=== PATIENT | male | born 1955 | race Caucasian/White ===

== ENCOUNTER 2022-09-09 09:55 | Outpatient (CLI) | payer MEDICARE, SELFPAY ==
--- NOTE | ~2022-09-09 | MR_ITS ---
EXAMINATION: MR lumbar spine wo con DATE: 09/09/2022 12:23 INDICATION: Low back pain. TECHNIQUE: Magnetic resonance imaging (MRI) of the lumbar spine was performed without intravenous con trast. Sequences included sagittal T2-weighted FSE, sagittal T2-weighted FS FSE, sagittal T1-weighted FSE, and axial T2-weighted FSE. COMPARISON: None FINDINGS: There is 4 degrees levocurvature of lumbar spine. There is mild chronic anterior wedging of T12 vertebral body. There is 3 mm anterolisthesis of L4 on L5. There is mildly decreased disc height at L4-L5. The distal spinal cord signal intensity is normal. The conus medullaris is at L1. The foll owing disc levels are specifically discussed: L1-L2: There is a central protrusion. There is mild bilateral facet joint osteoarthritis. There is no neural foraminal stenosis. There is mild central canal stenosis. L2-L3: The disc is mildly bulging. There is mild bilateral facet joint osteoarthritis. There is mild right neural foraminal stenosis. There is no central canal stenosis. L3-L4: There is a right foraminal protrusion. There is severe bilateral facet joint osteoarthritis. T here is mild right neural foraminal stenosis. There is no central canal stenosis. L4-L5: The disc is bulging and has an annular fissure. There is severe bilateral facet joint osteoart hritis. There is mild bilateral neural foraminal stenosis. There is mild central canal stenosis. Ther e is moderate stenosis of left lateral recess. L5-S1: The disc is bulging as an annular fissure. There is mild bilateral facet joint osteoarthritis. There is mild bilateral neural foraminal stenosis. There is mild central canal stenosis. IMPRESSION: 1. Moderate stenosis of left lateral recess at L4-L5. Otherwise mild lumbar spondylosis. Reviewed, dictated and finalized at location A. CH OPERATORS SUPERVISOR IMPRESSION: 1. Moderate stenosis of left lateral recess at L4-L5. Otherwise mild lumbar spo ndylosis.
== END 2022-09-09 09:56 | disposition home or self-care (01) ==
PROVIDERS: PCP Family Medicine; Visit Provider Nurse Practitioner Adult Health
DX: M54.9 Dorsalgia, unspecified (principal); M47.816 Spondylosis without myelopathy or radiculopathy, lumbar region; M48.061 Spinal stenosis, lumbar region without neurogenic claudication
CPT/HCPCS: 72148

== ENCOUNTER 2022-09-11 12:27 | Outpatient (CLI) | payer MEDICARE, SELFPAY ==
--- NOTE | ~2022-09-11 | XR_ITS ---
Lumbosacral Spine: AP and lateral views, with neutral, flexion, and extension positioning Clinical History: Pain Findings: Probable minimal anterior wedging deformity of T12. No fracture seen in the lumbar spine it self. Grade 1 anterolisthesis of L4 over L5 present, without instability evident on flexion or extens ion views. The intervertebral disc spaces are preserved. The sacroiliac joints are normally outlined . Impression: Grade 1 anterolisthesis of L4 over L5. No instability evident on flexion or extension views. Minimal anterior wedging deformity of T12. Reviewed, dictated and finalized at location . IGN BROADCAST SPECIALIST Impression: Grade 1 anterolisthesis of L4 over L5. No instability evident on flexion or ext ension views. Minimal anterior wedging deformity of T12.
== END 2022-09-11 12:28 | disposition home or self-care (01) ==
PROVIDERS: PCP Family Medicine; Visit Provider Nurse Practitioner Adult Health
DX: M54.9 Dorsalgia, unspecified (principal)
CPT/HCPCS: 72110

== ENCOUNTER 2023-02-10 09:33 | Outpatient (CLI) | payer MEDICARE, SELFPAY ==
--- NOTE | ~2023-02-10 | XR_ITS ---
Lumbosacral Spine: AP and lateral views, with neutral, flexion, extension positioning. Clinical History: Pain Findings: The normal lordotic curve is maintained. 4 mm anterolisthesis of L4 over L5 present. No ins tability evident on flexion or extension. There is moderate facet arthropathy from L4 through S1.. T he intervertebral disc spaces are preserved. The sacroiliac joints are normally outlined. Impression: 4 mm anterolisthesis of L4 over L5. Facet arthropathy at the lower lumbar spine, as detailed above. Reviewed, dictated and finalized at location M. Impression: 4 mm anterolisthesis of L4 over L5. Facet arthropathy at the lower lumbar spine, as detailed above.
== END 2023-02-10 09:34 | disposition home or self-care (01) ==
LOC: ANHIMG 09:35
PROVIDERS: PCP Family Medicine; Visit Provider Neurological Surgery
DX: M47.816 Spondylosis without myelopathy or radiculopathy, lumbar region (principal)
CPT/HCPCS: 72110

== ENCOUNTER 2023-08-27 10:54 | Outpatient (CLI) | payer MEDICARE, SELFPAY ==
--- NOTE | ~2023-08-27 | MR_ITS ---
EXAMINATION: MR lumbar spine wo con DATE: 08/27/2023 11:51 INDICATION: Spinal stenosis. Low back pain. Lumbar radiculopathy. TECHNIQUE: Magnetic resonance imaging (MRI) of the lumbar spine was performed without intravenous con trast. Sequences included sagittal T2-weighted FSE, sagittal T2-weighted FS FSE, sagittal T1-weighted FSE, and axial T2-weighted FSE. COMPARISON: Lumbar spine MRI 09/09/2022 FINDINGS: There is 5 degrees levocurvature of lumbar spine. There is 3 mm anterolisthesis of L4 on L5 . There is mild chronic anterior wedging of T12 vertebral body. There is mildly decreased disc height at L4-L5. The distal spinal cord signal intensity is normal. The conus medullaris is at L1. 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 The following disc levels are specifically discussed: L1-L2: The disc is bulging. There is mild bilateral facet joint osteoarthritis. There is mild bilater al neural foraminal stenosis. There is mild central canal stenosis. L2-L3: The disc is bulging. There is mild bilateral facet joint osteoarthritis. There is mild bilater al neural foraminal stenosis. There is no central canal stenosis. L3-L4: The disc is bulging. There is severe right and moderate left facet joint osteoarthritis. There is mild bilateral neural foraminal stenosis. There is mild central canal stenosis. L4-L5: The disc is bulging and has an annular fissure. There is severe bilateral facet joint osteoart hritis. There is mild bilateral neural foraminal stenosis. There is mild central canal stenosis. Ther e is moderate stenosis of left lateral recess. L5-S1: The disc is bulging and has an annular fissure. There is mild right and moderate left facet christiano int osteoarthritis. There is mild bilateral neural foraminal stenosis. There is mild central canal st enosis. IMPRESSION: 1. Stable moderate spondylosis at L4-L5 and mild spondylosis at other levels. Reviewed, dictated and finalized at location E. CENTER PROJECT MANAGER
== END 2023-08-27 10:55 | disposition home or self-care (01) ==
PROVIDERS: PCP Family Medicine; Visit Provider Neurological Surgery
DX: M48.061 Spinal stenosis, lumbar region without neurogenic claudication (principal); M43.06 Spondylolysis, lumbar region; M47.817 Spondylosis without myelopathy or radiculopathy, lumbosacral region
CPT/HCPCS: 72148

== ENCOUNTER 2023-09-08 10:30 | Outpatient (CLI) | payer MEDICARE, SELFPAY ==
[2023-09-08 11:05] LABS: Basophils Absolute Auto 0.1 K/mm3 (0.0-0.1); Basophils Percent Auto 1.9 % (0.2-1.2); Eosinophils Absolute Auto 0.2 K/mm3 (0-0.3); Eosinophils Percent Auto 3.4 % (0-4.4); Hematocrit 49.6 % (42.0-52.0); Hemoglobin 16.2 g/dL (14.0-18.0); Immature Granulocyte Absolute 0.02 K/mm3 (0.00-0.031); Immature Granulocyte Percent A 0.3 % (0-0.5); Lymphocytes Absolute Auto 1.66 K/mm3 (0.9-3.2); Mean Corpuscular HGB Conc 32.7 g/dl (32-36); Mean Corpuscular Hemoglobin 29.2 pg (26-34); Mean Corpuscular Volume 89.5 fl (80-100); Mean Platelet Volume 9.3 fl (7.4-10.4); Monocytes Absolute Auto 0.5 K/mm3 (0.1-0.6); Monocytes Percent Auto 8.5 % (2.6-8.5); Neutrophils Absolute Auto 3.8 K/mm3 (1.3-6.7); Neutrophils Percent Auto 59.9 % (45.5-73.1); Platelet Count Result 237 k/mm3 (150-375); Red Blood Count 5.54 M/mm3 (4.6-6.20); Red Cell Distribution Width 13.2 % (11.5-14.5); White Blood Count 6.4 K/mm3 (4.5-10.0)
[2023-09-08 11:17] LABS: Partial Thromboplastin Time 27.2 SECONDS (22.3-36.8); Prothrombin Time 13.5 Seconds (11.1-14.7)
[2023-09-08 11:18] LABS: Appearance Urine Clear (Clear); Bacteria Urine None Seen /hpf; Bilirubin Urine Negative (Negative); Blood Urine 2+ (Negative); Color Urine Yellow (Yellow); Glucose Urine UA Negative (Negative); Ketones Urine Trace mg/dL (Negative); Leukocyte Esterase Ur Negative LEU/UL (Negative); Nitrate Urine Negative (Negative); Non Pathogenic Casts 0-2; Protein Urine Negative (Negative); Specific Grav Ur 1.029 (1.001-1.035); Squamous Epithelial Cell Urine None seen /hpf (Few); WBC Urine 0-5 /hpf; pH Urine 5.5 (5.0-9.0)
[2023-09-08 11:20] LABS: Anion Gap 10 mmol/L (8-16); Blood Urea Nitrogen 18 mg/dL (9-20); Calcium 9.3 mg/dL (8.4-10.2); Carbon Dioxide 30 mmol/L (22-30); Chloride 98 mmol/L (98-107); Estimated Glomerular Filt Rate > 60; Glucose 115 mg/dL (65-110); Potassium 3.9 mmol/L (3.4-5.0); Sodium 138 mmol/L (137-145)
[2023-09-08 11:31] LABS: Add Urine Microscopic? YES
== END 2023-09-08 10:31 | disposition home or self-care (01) ==
LOC: ANHSURGERY 10:35
PROVIDERS: PCP Family Medicine; Visit Provider Neurological Surgery
DX: Z01.818 Encounter for other preprocedural examination (principal); M48.061 Spinal stenosis, lumbar region without neurogenic claudication
CPT/HCPCS: 36415; 80048; 81001; 85025; 85610; 85730

== ENCOUNTER 2023-09-16 17:48 | Observation (INO) | payer MEDICARE, SELFPAY ==
--- NOTE | 2023-09-03 14:58 | PC.NURSE ---
Report to the Outpatient Waiting Room, entrance under the green pavilion located off [facility], at time _0600 on date __09/15/23 . Planned Procedure Time: _0730 . Time changes happen often and if your time is changed the preop area will call you the afternoon before. - You and your visitor will be asked to self-screen and do not enter if you have any COVID symptoms. - A mask is optional within the hospital at this time. Patients may have clear liquids (water, carbonated beverages, clear teas, apple juice) until 3 hours prior to surgery (4:30AM)with a maximum of 20 ounces. - No food from midnight until time of surgery - Infants may have breast milk until 4 hours before surgery, formula 6 hours prior to surgery. - Children will be allowed to drink immediately following surgery. If applicable, please bring a bottle or sippy cup to assist with drinking. Juice, water, soda, and popsicles are readily available. For infants on formula, please bring formula the day of surgery. Pacifiers are allowed. Take the following medications with a SIP of water the morning of surgery: __DILTIAZEM,FLECAINIDE DO NOT STOP ANY OF YOUR OTHER PRESCRIPTION MEDICATIONS PRIOR TO SURGERY ?EXCEPT THE FOLLOWING Medications to discontinue per physician NONE Please no make-up, nail korean, hairspray, perfume, deodorant, or body powder the day of surgery. No jewelry (including any body piercings) or valuables the day of surgery, leave them at home. Please take a shower or bath the night before, or the morning of, surgery with an antibacterial soap. Wear comfortable, loose fitting clothing. Children are encouraged to wear pajamas. - Jewelry must be removed prior to entering the operating room. Rings and piercings that are not removed may be cut off. - The hospital will not accept responsibility for valuables. - Please leave all valuables, including medications, at home the day of surgery. If you are going home after surgery, a licensed waste collection driver must drive you home. - NO public transportation without another adult if you receive anesthesia. - We recommend that an adult stay with you for 24 hours following discharge. - We also recommend that you do not drive, make important decision, drink alcoholic beverages, or take any drugs that were not prescribed by your health care provider for at least 24 hours after your discharge time. Follow any additional instructions given to you from your surgeon. If you or anyone in your household have experienced Covid symptoms in the past week, please notify your surgeon or the nurse liaison at the phone number below for possible testing. TELEPHONE instructions given to _PATIENT and asked if any additional questions and then verbalized understanding. Patient advised to call surgeon office or pre surgery nurse liaison [phone] if any additional questions.
[2023-09-03 15:04] VITALS: BMI 35.2
[2023-09-15] VITALS (16 sets, daily range): BP systolic 100–157; BP diastolic 49–85; PULSE 60–82; RESP 8–23; TEMP 36.1–36.8; O2SAT 91–100
[2023-09-15] MEDS: LACTATED RINGERS 1,000 ML 30 ML IV CONT ×3 (06:47→10:30)
--- NOTE | 2023-09-15 07:00 | WPDANESEPPF ---
Anes - Initial Pre Proc Eval Procedure: Operation Date: 09/15/23 07:30 Proposed Procedures p L4- L5 Lumbar Laminectomy - Candelaria Tillman MD Date/Time: 09/15/23 07:00 Surgeon: Candelaria Tillman MD Pre Op Diagnosis: lumbar stenosis with radiculopathy Patient Data Age: 67 Gender: M Height: 1.8 m Weight: 115 kg Last Vital Signs Temp 36.8 C 09/15/23 06:48 Pulse 82 09/15/23 06:48 Resp 16 09/15/23 06:48 BP 157/78 H 09/15/23 06:48 Pulse Ox 96 09/15/23 06:48 O2 Del Method Room Air 09/15/23 06:48 Allergies Allergy/AdvReac Type Severity Reaction Status Date / Time pollen extracts Allergy Mild Congested Verified 09/15/23 06:22 Home Medications Medication Instructions Recorded Confirmed Type diltiazem HCl 180 mg capsule,24 180 mg PO DAILY 06/09/22 09/15/23 History hr,extended release flecainide 50 mg tablet 50 mg PO Q12H 06/09/22 09/15/23 History omeprazole 40 mg capsule,delayed 20 mg PO DAILY 06/09/22 09/15/23 History release tadalafil 20 mg tablet (Cialis) 20 mg PO PRN PRN Erectile 06/09/22 09/03/23 History Dysfunction albuterol sulfate 90 mcg/actuation 1 puff inhalation Q4H PRN 02/05/23 09/03/23 Rx aerosol inhaler shortness of breath or wheezing #8.5 grams acetaminophen 500 mg capsule 1,000 mg PO PRN PRN Pain 09/03/23 09/15/23 History montelukast 10 mg tablet 10 mg PO DAILY #90 tabs 09/06/23 Rx Patient hx anesthesia problems: none Family hx anesthesia problems: none Results Review: All pre-operative results and documents have been reviewed as part of the pre-operative evaluation. [facility] Past Medical History Medical History Aftercare following bilateral shoulder joint replacement surgery Allergies Anxiety Asthma Cervical disc disease Encounter for screening for malignant neoplasm of prostate GERD (gastroesophageal reflux disease) Hernia History of stress test Left knee injury Left knee pain Left knee pain Lumbar pain Lumbar spondylosis PEDRO (obstructive sleep apnea) Paroxysmal A-fib Sciatica Sleep apnea Surgical History Surgical History History of colonoscopy 2006 History of tooth extraction History of total hip replacement Family History Family History Father Malignant neoplasm of prostate Mother Alzheimer disease Social History Social History Social History: Rakan is very confident filling out medical forms. Smoking status: Never smoker Alcohol intake: current Alcohol use details: rare Substance use: never Substance use type: does not use Do You Feel Safe in your Home?: Yes Lack of Transportation: No Lack of Food: Never True Current Housing: I Have Housing Concerned About Future Housing: No Difficulty Paying Gas/Electric Bills: No Difficulty Paying for Meds: No Currently Unemployed: No Education: Master's Degree or Higher Difficulty w/ Childcare or Family Care: No Living arrangements: with family Occupation/Education: occupation Gender identity (if verbalized by the patient): Male Sexual Orientation (if Verbalized by the Patient): Straight or Heterosexual Spiritual care concerns: No Anes - Eval Final PreProcedure Day of Procedure 09/15/23 07:00 Patient weight: obese Heart: regular rate and rhythm Lungs: clear to auscultation Airway: Mallampati scale class III, special considerations and other (partials) Neurological: alert and oriented Last oral intake: >/= 8 hours ASA classification: III Emergent: no Anesthetic plan: proceed Anesthesia type and monitoring: general ETT and standard monitoring Results Review: All pre-operative results and documents have been reviewed as part of the pre-operative evaluation. Informed Consent: The patient's anesthetic plan
--- NOTE | 2023-09-15 07:17 | WPDHPUPDATE1 ---
History and Physical Update Update Date/Time: 09/15/23 07:17 History and Physical has been reviewed, including an updated exam of the patient. There are NO changes in the patient's condition. Risks, benefits, and alternatives have been discussed and questions answered. Patient agrees to proceed with procedure.
--- NOTE | 2023-09-15 07:18 | PM.IMHP ---
H&P: HPI History of Present Illness Date/Time: 09/15/23 07:18 Chief Complaint: back and right leg pain Narrative: Mr. Weston is a? 67-year-old male with history of AFib in asthma who presents for follow-up of back and right leg pain.? He had previously been following with Dr. Smith for these symptoms.? He describes pain in the lower back that radiates down the back of the right leg into foot which occurs with any kind of activity.? He generally is pain-free at rest.? He denies any weakness or paresthesias in the leg.? He generally does not have any symptoms on the left side.? He has had physical therapy, chiropractic treatment, and 2 epidural steroid injections at which were helpful only on a temporary basis.? His symptoms have become quite limiting for him, and he is ready to pursue surgery. ? He notably has a history of AFib for which he follows with Dr. Bob Goyal of cardiology at [facility].? He does not take any blood thinners for this.? He otherwise denies any significant medical issues. Review of Systems Review of Systems: All systems reviewed & are unremarkable except as noted in HPI and below PMFSH Past Medical History Medical History Aftercare following bilateral shoulder joint replacement surgery Allergies Anxiety Asthma Cervical disc disease Encounter for screening for malignant neoplasm of prostate GERD (gastroesophageal reflux disease) Hernia History of stress test Left knee injury Left knee pain Left knee pain Lumbar pain Lumbar spondylosis PEDRO (obstructive sleep apnea) Paroxysmal A-fib Sciatica Sleep apnea Surgical History Surgical History History of colonoscopy 2006 History of tooth extraction History of total hip replacement Family History Family History Father Malignant neoplasm of prostate Mother Alzheimer disease Social History Social History Social History: Rakan is very confident filling out medical forms. Smoking status: Never smoker Alcohol intake: current Alcohol use details: rare Substance use: never Substance use type: does not use Do You Feel Safe in your Home?: Yes Lack of Transportation: No Lack of Food: Never True Current Housing: I Have Housing Concerned About Future Housing: No Difficulty Paying Gas/Electric Bills: No Difficulty Paying for Meds: No Currently Unemployed: No Education: Master's Degree or Higher Difficulty w/ Childcare or Family Care: No Living arrangements: with family Occupation/Education: occupation Gender identity (if verbalized by the patient): Male Sexual Orientation (if Verbalized by the Patient): Straight or Heterosexual Spiritual care concerns: No Meds Home Medications and Allergies Home Medications Medication Instructions Recorded Confirmed Type diltiazem HCl 180 mg capsule,24 180 mg PO DAILY 06/09/22 09/15/23 History hr,extended release flecainide 50 mg tablet 50 mg PO Q12H 06/09/22 09/15/23 History omeprazole 40 mg capsule,delayed 20 mg PO DAILY 06/09/22 09/15/23 History release tadalafil 20 mg tablet (Cialis) 20 mg PO PRN PRN Erectile 06/09/22 09/03/23 History Dysfunction albuterol sulfate 90 mcg/actuation 1 puff inhalation Q4H PRN 02/05/23 09/03/23 Rx aerosol inhaler shortness of breath or wheezing #8.5 grams acetaminophen 500 mg capsule 1,000 mg PO PRN PRN Pain 09/03/23 09/15/23 History montelukast 10 mg tablet 10 mg PO DAILY #90 tabs 09/06/23 Rx Allergies Allergy/AdvReac Type Severity Reaction Status Date / Time pollen extracts Allergy Mild Congested Verified 09/15/23 06:22 Vital Signs Vital Signs - 24 hr 09/15/23 06:48 Temperature 98.2 F Pulse Rate 82 Respiratory Rate 16 Blood Pressure 157/78 H Pulse Oximetry 96 Oxyge
[2023-09-15] MEDS: ceFAZolin 2 GM/D5W 50 ML 2 GM/50 ML BAG IVPB ×3 (07:30→21:52)
[2023-09-15] MEDS: BUPIVACAINE/EPINEPHRINE 0.5% 50 ML VIAL 30 ML INFILTRATE (08:06)
--- NOTE | 2023-09-15 09:46 | PM.OP ---
Procedure Note - Brief Procedure Note - Brief Date of procedure: 09/15/23 lumbar stenosis with radiculopathy Post-op diagnosis: Same Procedure performed: L4-5 laminectomy, medial facetectomy, foraminotomy Repair of iatrogenic CSF leak Use of microscope Use of C-arm Surgeon: Candelaria Tillman MD Pharmacy Data Analyst: Sulaiman Anesthesia: GETA Description of procedure: Laminectomy at L4-5. Durotomy created at inferior aspect of exposure toward right of midline. This was repaired with neurolon, duragen, and duraseal Estimated blood loss (mL): 50 Drains: No Packing: No Pathology: None sent Complications: Other complications (CSF leak repaired primarily) Condition: Stable Disposition: PACU
--- NOTE | 2023-09-15 10:02 | W.PM.PROC2 ---
Procedure Note - Detailed Date of Procedure 09/15/23 Pre-op Diagnosis lumbar stenosis with radiculopathy Post-op Diagnosis Same Procedure Performed 1. L4-5 laminectomy, medial facetectomy, foraminotomy 2. Use of microscope 3. Use of C-arm 4. Repair of iatrogenic durotomy Surgeon Candelaria Tillman MD Nuclear Station Operator Sulaiman Anesthesia General Indications Mr. Weston is a 67-year-old male with history of AFib in asthma who presents with over 1 year back and radicular right leg pain following an S1 dermatome which has been unresponsive to physical therapy, chiropractic treatment, and epidural steroid injections.? His symptoms have become quite debilitating for him, and he is ready to pursue surgery.? He is neurologically intact on physical exam.? MRI lumbar spine does show moderate to severe stenosis at L4-5, particularly in the lateral recesses.?Surgery in the form of L4-5 laminectomy was recommended. Risks including bleeding, pain, infection, weakness, paresthesias, CSF leak, failure to relieve symptoms, and anesthetic complications were discussed. The patient provided written informed consent to proceed. Description of Procedure The patient was brought to the operating room, and general anesthesia was induced. The patient was placed prone on the Reinaldo frame, and all pressure points were padded. Compression devices were placed on the patient's calves. The C-arm was brought onto the field to localize the appropriate disc space and assist with incisional planning. The area was prepped and draped in usual sterile fashion. A time out was conducted, and pre-operative antibiotics were administered. Local anesthesia was injected into the planned incision. A midline skin incision was made with a 10-blade scalpel, and dissection was carried down with the monopolar cautery to open the fascia. Once the spinous processes were located, a subperiosteal dissection was performed to expose the laminae bilaterally at L4. A self-retaining retractor was placed. The C-arm was brought in to confirm the correct level. The microscope was draped and brought into the field. The spinous process of L4 was removed with the Leksell. The high-speed drill was used to remove the laminae down to the ligamentum flavum at these levels. The remaining lamina was removed with kerrison rongeurs. The ligamentum flavum was opened and removed with the Kerrison. A medial facetectomy and foraminotomy on the right side was performed as well with the kerrison. At the inferior aspect of the exposure on the right side, the dura was adherent to the overlying tissues, and a CSF leak was created while using the kerrison. Further exposure inferiorly was performed to expose the length of the durotomy. We were eventually able to visualize the entire durotomy and to close this primarily with a 5-0 neurolon. A Valsalva was performed which showed no further CSF leakage. Hemostasis was ensured in the epidural space, and the suture line was covered with Duragen followed by Duraseal. Hemostasis was ensured, and the area was copiously irrigated. The muscle was loosely approximated with 0-Vicryl. The fascia was closed with 0-Vicryl in an interrupted fashion. The soft tissue was again copiously irrigated. The dermis was closed with 2-0 and 3-0 interrupted Vicryl. The skin was closed with 4-0 monocryl in subcuticular fashion. Skin glue was applied.? The patient was returned supine on the stretcher, extubated, and transferred to PACU without incident. The patient and his were informed of the durotomy and plan to keep him overnight on flat bedrest. Codes: 40983, 60576 Implants 1x1 duragen Estimated Blood Loss 50 Drains No Packing No Pathology None sent Complications Other complications (CSF leak repaired primarily) Condition Stable Disposition PACU [facility] Billing Surgery - Charge Forward: Surgery Billing
--- NOTE | 2023-09-15 10:59 | SUR.PHASEI ---
Patient meets PACU discharge criteria, unit bed unavailable at this time. Patient placed in extended recovery status.
--- NOTE | 2023-09-15 12:40 | ADMGEN ---
This patient, Rakan Weston, was admitted to 3 [facility] Surg Room 307-01. Patient/family oriented to hospital policies and general routines including ID bracelet, bed and alarms, visiting hours, pain management, procedures, bathroom and other care routines, personal items, smoking policy, room service/diet, and visiting hours. Information on how to activate the Rapid Response Team has been discussed. Patient/Family are encouraged to report perceived risks to care and to ask questions if they do not understand what they are told or what they should do.
[2023-09-15] MEDS: oxyCODONE HCL (*CRX) 5 MG TAB IR PO (12:48)
[2023-09-15] MEDS: ONDANSETRON INJ 4 MG/2 ML VIAL IV PUSH ×2 (12:48→23:29)
[2023-09-15] MEDS: KCL 20 MEQ/D5/0.45% SOD CHL 1,000 ML 100 ML IV CONT (17:15)
[2023-09-15] MEDS: CYCLOBENZAPRINE HCL 10 MG TABLET PO (18:28)
[2023-09-15] MEDS: ACETAMINOPHEN 500 MG TABLET 1000 MG PO (21:51)
[2023-09-15] MEDS: DOCUSATE SODIUM 100 MG CAPSULE PO (21:51)
[2023-09-15] MEDS: FLECAINIDE ACETATE 50 MG TABLET PO (21:51)
[2023-09-16] VITALS (12 sets, daily range): BP systolic 80–120; BP diastolic 30–64; PULSE 69–98; RESP 16–18; TEMP 36.3–37; O2SAT 92–95
--- NOTE | ~2023-09-16 | XR_ITS ---
EXAMINATION: XR fluoroscopy no charge DATE: 09/15/2023 10:01 INDICATION: Lumbar laminectomy TECHNIQUE: 2 fluoroscopic images of the lower lumbar spine were obtained during procedure performed rivas Tillman. Radiologist was not present for the imaging or procedure. The amount of fluoroscopy ti me used during this procedure was 0.1 minutes. COMPARISON: 02/10/2023 FINDINGS/IMPRESSION: Images demonstrate a lap sponge, surgical retractors and the tip of a metallic probe projecting over the L4-L5 spinous processes. See procedure note for further detail. Reviewed, dictated and finalized at location A. OR'S AIDE
[2023-09-16] MEDS: PROMETHAZINE HCL 25 MG/ML AMPUL 12.5 MG IV PUSH (02:25)
[2023-09-16] MEDS: SODIUM CHLORIDE 0.9% IV 1,000 ML 999 ML IV CONT (02:25)
--- NOTE | 2023-09-16 03:23 | PC.NURSE ---
Patient c/o dizziness/lightheadedness, nausea and dry heaving. BP checked, 80/30. Spoke with Dr. Tillman at 0225. New orders received for NS 1L bolus and phenergan 12.5 IVP Q4H PRN.
[2023-09-16] MEDS: ACETAMINOPHEN 500 MG TABLET 1000 MG PO ×3 (05:00→20:17)
[2023-09-16] MEDS: ceFAZolin 2 GM/D5W 50 ML 2 GM/50 ML BAG IVPB (05:01)
[2023-09-16] MEDS: ONDANSETRON INJ 4 MG/2 ML VIAL IV PUSH (05:26)
[2023-09-16] MEDS: FLECAINIDE ACETATE 50 MG TABLET PO (08:39)
[2023-09-16] MEDS: PANTOPRAZOLE 40 MG TABLET PO (08:40)
[2023-09-16] MEDS: DOCUSATE SODIUM 100 MG CAPSULE PO ×2 (08:40→20:17)
[2023-09-16] MEDS: dilTIAZem HCL CD 180 MG CAP.24HR PO (08:40)
[2023-09-16] MEDS: CYCLOBENZAPRINE HCL 10 MG TABLET PO (08:40)
--- NOTE | 2023-09-16 14:02 | WPDANESPN ---
Anes - Prog Note Post-Op Date/Time: 09/16/23 14:02 Cardiovascular status: normal Respiratory status: normal Airway patency: baseline Mental status: baseline Post-Op hydration status: normal Vital Signs: Last Vital Signs Temp 98.5 F 09/16/23 08:00 Pulse 81 09/16/23 08:39 Resp 16 09/16/23 08:00 BP 107/62 09/16/23 08:00 Pulse Ox 94 09/16/23 09:12 O2 Del Method Nasal Cannula 09/16/23 09:12 O2 Flow Rate 2 09/16/23 09:12 Pain Score (VAS): 5 I/O: Intake & Output 09/15/23 09/16/23 09/16/23 23:59 07:59 15:59 Intake Total 322 236 Output Total 786 055 Balance -[id number] Post-procedural complaints: nausea and vomiting Patient Feedback: Patient satisfied with anesthetic care.
--- NOTE | 2023-09-16 15:41 | PC.NURSE ---
Per phone call with Dr. Tillman, pt's vitals are only to be done at the beginning of each shift. Additionally, pt is not to be disturbed outside of the first four hours of the shift, particularly overnight.
--- NOTE | 2023-09-16 16:51 | WPDNEUROSGPN ---
Progress Note: A&P Assessment and Plan (1) Status post lumbar laminectomy: Code(s): Z98.890 - Other specified postprocedural states Status: Acute Plan -Continue to monitor blood pressure -Monitor for positional headaches, incisional drainage -PT/OT evaluations today -Anticipate discharge home tomorrow morning -I reviewed wound care instructions and restrictions Subjective Date/time seen: 09/16/23 14:30 Interval history: Issues overnight with hypotension, nausea/vomiting, and dizziness. He received a bolus of NS overnight which resolved the hypotension. Nausea is much improved today. He ambulated in the [facility] with therapy. He feels very fatigued and somewhat light-headed. Pain is being controlled with tylenol. He denies positional headaches. He denies any leg pain or paresthesias. Neither he nor his feel that he is ready for discharge this afternoon. Review of Systems Review of Systems: All systems reviewed & are unremarkable except as noted in HPI and below Exam Narrative: Incision c/d/i with dermabond in place Full strength in lower extremities Sensation intact to light touch AOx4 Ambulating with walker Objective Data Vital Signs Vital Signs: Vital Signs - 24 hr 09/15/23 21:22 09/15/23 22:21 09/16/23 01:21 Temperature 97.3 F L 97.4 F L Pulse Rate 76 89 Respiratory Rate 16 18 Blood Pressure 102/56 L 107/55 L Pulse Oximetry 95 91 92 Oxygen Delivery Room Air Oxygen Flow Rate 09/15/23 20:00 09/16/23 02:20 09/16/23 03:10 Temperature Pulse Rate 97 95 Respiratory Rate Blood Pressure 80/30 L 120/58 L Pulse Oximetry 92 95 Oxygen Delivery Room Air Oxygen Flow Rate 09/16/23 07:04 09/16/23 08:39 09/16/23 08:00 Temperature 98.6 F 98.5 F Pulse Rate 98 81 85 Respiratory Rate 18 16 Blood Pressure 106/47 L 107/62 Pulse Oximetry 95 94 Oxygen Delivery Oxygen Flow Rate 09/16/23 09:12 09/16/23 08:40 09/16/23 13:53 Temperature Pulse Rate Respiratory Rate Blood Pressure Pulse Oximetry 94 92 Oxygen Delivery Nasal Cannula Nasal Cannula Room Air Oxygen Flow Rate 2 2 09/16/23 14:00 Temperature 98.0 F Pulse Rate 69 Respiratory Rate 18 Blood Pressure 103/64 Pulse Oximetry 95 Oxygen Delivery Oxygen Flow Rate Intake/Output Intake/Output: Intake & Output 09/13/23 09/14/23 09/15/23 09/16/23 23:59 23:59 23:59 23:59 Intake Total 1272 236 Output Total 710 950 Balance 562 -714 Meds/Results Medications: Active Medications Generic Name Dose Route Start Last Admin Trade Name Freq PRN Reason Stop Dose Admin Acetaminophen 1,000 mg 09/15/23 09:49 09/16/23 13:20 Acetaminophen 500 Mg Tablet PO 1,000 mg Q6H PRN Administration Mild Pain (1-3) Al Hydrox/Mg Hydrox/Simethicone 20 ml 09/15/23 09:48 Mag Hydrox/Al Hydrox/Simeth 30 Ml Udc PO Q4H PRN Indigestion/Heartburn Albuterol 1 puff 09/15/23 09:52 Albuterol Sulfate (*Sp) Aerosol 1 Puff INHALATION Q4H PRN shortness of breath or wheezing Bisacodyl 10 mg 09/15/23 09:48 Bisacodyl 10 Mg Suppository RECTAL DAILY PRN Constipation Cyclobenzaprine HCl 10 mg 09/15/23 12:16 09/16/23 08:40 Cyclobenzaprine Hcl 10 Mg Tablet PO 10 mg TID PRN Administration Muscle Spasms Diltiazem HCl 180 mg 09/16/23 09:00 09/16/23 08:40 Diltiazem Hcl Cd 180 Mg Cap.24hr PO 180 mg DAILY JUDITH Administration Docusate Sodium 100 mg 09/15/23 21:00 09/16/23 08:40 Docusate Sodium 100 Mg Capsule PO 100 mg Q12HR JUDITH Administration Flecainide Acetate 50 mg 09/15/23 21:00 09/16/23 08:39 Flecainide Acetate 50 Mg Tablet PO 50 mg Q12HR JUDITH Administration Ondansetron HCl 4 mg 09/15/23 16:23 09/16/23 05:26 Ondansetron Inj 4 Mg/2 Ml Vial IV PUSH 4 mg Q4HR PRN Administration Nausea And Vomiting Oxycodone HCl 5 mg 09/15/23 09:49 09/15/23 12:48 Oxycodone Hcl (*Crx) 5 Mg Tab Ir PO
[2023-09-17 00:23] VITALS: O2SAT 93
[2023-09-17] MEDS: ACETAMINOPHEN 500 MG TABLET 1000 MG PO ×2 (03:30→09:20)
[2023-09-17 06:05] VITALS: BP 133/55; PULSE 66; RESP 20; TEMP 36.6; O2SAT 94
[2023-09-17] MEDS: PANTOPRAZOLE 40 MG TABLET PO (08:23)
[2023-09-17 08:24] VITALS: PULSE 73
[2023-09-17] MEDS: FLECAINIDE ACETATE 50 MG TABLET PO (08:24)
[2023-09-17] MEDS: DOCUSATE SODIUM 100 MG CAPSULE PO (08:24)
[2023-09-17] MEDS: dilTIAZem HCL CD 180 MG CAP.24HR PO (08:24)
[2023-09-17 08:32] VITALS: BP 117/65; PULSE 68; RESP 20; TEMP 36.5; O2SAT 95
--- NOTE | 2023-10-06 17:08 | PM.DS ---
DS: Admitting Diagnosis Discharge Date 09/17/23 Admitting Diagnosis Lumbar stenosis with radiculopathy DS: Discharge Diagnosis Discharge Diagnosis (1) Status post lumbar laminectomy: Code(s): Z98.890 - Other specified postprocedural states Status: Acute (2) Spinal stenosis of lumbar region with radiculopathy: Code(s): M48.061 - Spinal stenosis, lumbar region without neurogenic claudication; M54.16 - Radiculopathy, lumbar region Status: Acute DS: Summary Hospital Course Hospital Course: He presented on September 15 for surgery; please see the operative note for more details. He was transferred to the floor after surgery and remained on flat bedrest for about 24 hours. On POD1, he started to mobilize with therapy. Due to pain issues, he remained in the hospital another night and was discharged home on POD2 without any symptoms concerning for persistent CSF leak. His pain was controlled; he was cleared for discharge home by therapy, and he was tolerating oral intake. Time Spent with Patient Time attestation: Total time spent providing and/or coordinating discharge services: Exam Narrative: Incision c/d/i with dermabond in place Full strength in lower extremities Sensation intact to light touch AOx4 Ambulating with walker Discharge Plan Discharge Consulting providers: Awais Hendricks; Johnie Edmonds; China Pelayo Discharging Clinician: Candelaria Tillman Patient Disposition: Home, Self-Care Activity: no straining Diet: regular Wound Care Instructions: incision open to air Discharge Instructions: Discharge Instructions Procedure: Lumbar laminectomy Your doctor has partially removed one or more lamina from your back (lumbar spine), to remove pressure from the nerve roots. Here are some instructions to follow upon discharge from the hospital to help in your recovery. Wound Care: You may shower and get your incision wet starting on post-operative day 2 (September 17). You may use soap and water to clean your incision. Lightly dab the incision dry. Do not apply any ointments, creams, or lotions to the incision. Do not take baths or sit in a hot tub or pool for at least 4 weeks after surgery or until approved by your doctor. Your incision is covered with skin glue. This will typically peel off on its own in 4 weeks. Activity: Until released by your doctor, you should not return to work. You should rest at home and let your body heal. Taking short walks is encouraged, but avoid strenuous exercise. Do not jog, run, bicycle, lift weights, or participate in any other exercises unless specifically allowed by your doctor. Most importantly, avoid lifting objects heavier than about 10 lbs (or carton of milk) as this places a strain on your back. Avoid twisting and bending motions. Avoid prolonged sitting. Where possible, avoid household activities that involve lifting and/or bending such as laundry, grocery shopping, and childcare. Try to arrange for help from friends and family for these activities while your back heals. You should not drive for a few days and must be off narcotic pain medications prior to driving. DO NOT SMOKE TOBACCO. Smoking has been proven to interfere with the normal healing of the bones in your back. Smoking will dramatically reduce the success rate of your surgery. Your doctor can prescribe a patch to help you stop smoking if you would like. Diet: You can return to your usual diet, unless instructed otherwise by your doctor. Medications: You should resume taking all of your normal medications, unless instructed otherwise by your doctor. If you have questions about your normal medications (those prescribed for high blood pressure, for example), call your family doctor or train control technician. You will be given a prescription for pain medications and possibly a laxative, as pain medications can cause constipation. Take the pain medicines
== END 2023-09-17 11:26 | disposition home or self-care (01) ==
LOC: ANHSURGERY 17:50 → ANH3MEDSUR 17:50
PROVIDERS: Admitting Provider Neurological Surgery; PCP Family Medicine; Visit Provider Neurological Surgery
PROC: (CPT 63005; principal; 2023-09-15 07:30)
DX: M48.061 Spinal stenosis, lumbar region without neurogenic claudication (principal); M54.16 Radiculopathy, lumbar region; G97.41 Accidental puncture or laceration of dura during a procedure; I95.81 Postprocedural hypotension; R11.2 Nausea with vomiting, unspecified; R42 Dizziness and giddiness; I48.91 Unspecified atrial fibrillation; F41.9 Anxiety disorder, unspecified; J45.909 Unspecified asthma, uncomplicated; G47.33 Obstructive sleep apnea (adult) (pediatric); K21.9 Gastro-esophageal reflux disease without esophagitis; F10.90 Alcohol use, unspecified, uncomplicated; Z79.51 Long term (current) use of inhaled steroids; Z79.1 Long term (current) use of non-steroidal anti-inflammatories (NSAID); Z79.899 Other long term (current) drug therapy
CPT/HCPCS: 63047; 63709; 36415; 80048; 81001; 85025; 85610; 85730; 97161; 97165; 97530; 97535; 99199; A9270; G0378; J0330; J0690; J2250; J2270; J2405; J2550; J2704; J3480; J7030; J7120